=== PATIENT | male | born 1990 | race Caucasian/White ===

== ENCOUNTER 2017-06-29 13:03 | Outpatient (CLI) | payer OTHER | END 2017-06-29 13:04 | disposition home or self-care (01) | LOC: DI 13:03 | PROVIDERS: ATTEND Physician Assistant | DX: R00.2 Palpitations (principal) | CPT/HCPCS: 93306 ==

== ENCOUNTER 2018-10-09 10:41 | Outpatient (CLI) | payer OTHER ==
--- NOTE | 2018-10-09 12:16 | XRAY Report ---
Reason: UNSPECIFIED INJURY OF LEFT FOOT,INITIAL ENCOUNTER Procedure Date: 10/09/2018 Accession Number: [id number] / [id number] Procedure: XR - Foot 3 View LT CPT Code: FULL RESULT: EXAM: LEFT FOOT RADIOGRAPHY EXAM DATE: 10/09/2018 10:55 AM. CLINICAL HISTORY: Unspecified injury of left foot,initial encounter. COMPARISON: XR TOE OR TOES MIN 2 VIEWS 10/23/2008 10:19 AM. TECHNIQUE: 3 views. FINDINGS: Bones: Os trigonum is noted. No fractures or bone lesions. Joints: Normal. No subluxations. Soft Tissues: Normal. No soft tissue swelling. IMPRESSION: No fracture or dislocation is seen. RADIA
== END 2018-10-09 10:42 | disposition home or self-care (01) ==
LOC: DI 10:41
PROVIDERS: ATTEND Nurse Practitioner Family
DX: S99.922A Unspecified injury of left foot, initial encounter (principal)

== ENCOUNTER 2023-03-29 08:00 | Outpatient (CLI) | payer OTHER ==
[2023-03-29 20:30] LABS: BILIRUBIN,URINE NEGATIVE (NEGATIVE); GLUCOSE, URINE (UA) NEGATIVE (NEGATIVE); KETONES,URINE (UA) NEGATIVE (NEGATIVE); LEUKOCYTE ESTERASE, URINE NEGATIVE (NEGATIVE); NITRITE,URINE NEGATIVE (NEGATIVE); OCCULT BLOOD,URINE NEGATIVE (NEGATIVE); PROTEIN,URINE NEGATIVE (NEGATIVE); UROBILINOGEN,URINE 0.2 (NORMAL) E.U./dL (NORMAL)
[2023-03-29 20:32] LABS: CLARITY,URINE CLEAR (CLEAR)
[2023-03-29 21:06] LABS: BACTERIA,URINE None Seen /HPF (None Seen); RBC,URINE None Seen /HPF (0-5); SQUAMOUS EPITHELIAL CELL,UR NONE SEEN (<= Few); WBC,URINE 0-3 /HPF (0-3)
== END 2023-03-29 23:59 | disposition home or self-care (01) ==
LOC: LAB 08:00
PROVIDERS: ATTEND Emergency Medicine
DX: R10.32 Left lower quadrant pain (principal)
CPT/HCPCS: 81001; 87086

== ENCOUNTER 2023-03-30 16:49 | Emergency (ER) | payer OTHER ==
--- NOTE | 2023-03-30 17:01 | ED Physician Documentation ---
PD HPI ABD PAIN - Stated complaint Stated Complaint: ABD PX - Chief complaint Chief Complaint: Abd Pain - History obtained from History obtained from: Patient - Additional information Additional information: Otherwise healthy 33-year-old gentleman has had 2 days of slowly worsening left lower quadrant pain radiating to the penis. He gets a lot worse when he urinates. He has had on and off similar pain slightly higher for the last couple of months. No history of abdominal surgeries or colonoscopy. Seen in the urgent care yesterday and reportedly had normal UA and outpatient CT was ordered but advised to come here if he worsened which she has but declines pain medication on initial evaluation. PD PAST MEDICAL HISTORY - Past Surgical History Past Surgical History: No - Present Medications Home Medications: Ambulatory Orders Medication Instructions Recorded Confirmed Amox/Clav 875/125 [Augmentin] 1 each PO TID #21 tablet 03/30/23 - Allergies Allergies/Adverse Reactions: Allergies Allergy/AdvReac Type Severity Reaction Status Date / Time No Known Drug Allergies Allergy Verified 03/30/23 17:13 - Social History Does the pt smoke?: No Smoking Status: Never smoker Does the pt drink ETOH?: Yes Does the pt have substance abuse?: No PD ED PE NORMAL - Vitals Vital signs reviewed: Yes - General General: Alert and oriented X 3, No acute distress - Abdomen Abdomen: Normal bowel sounds, Soft, Other (Mild left lower quadrant tenderness without surgical signs) - Neuro Neuro: Alert and oriented X 3, Normal speech Results - Vitals Vitals: Vital Signs - 24 hr 03/30/23 03/30/23 03/30/23 16:56 17:06 20:05 Temperature 36.1 C L 36.3 C L Heart Rate 82 71 63 Respiratory 16 16 16 Rate Blood Pressure 133/89 H 141/96 H 127/88 H O2 Saturation 100 98 96 Oxygen O2 Source Room air - Labs Labs: Laboratory Tests 03/30/23 03/30/23 17:00 17:00 WBC 9.2 RBC 5.01 Hgb 14.8 Hct 45.1 MCV 90.0 MCH 29.5 MCHC 32.8 RDW 12.7 Plt Count 208 MPV 10.8 Neut # (Auto) 4.7 Lymph # (Auto) 3.6 H [place] # (Auto) 0.8 Eos # (Auto) 0.1 Baso # (Auto) 0.0 Absolute Nucleated RBC 0.00 Nucleated RBC % 0.0 Sodium 139 Potassium 3.6 Chloride 104 Carbon Dioxide 30 Anion Gap 5.0 L BUN 15 Creatinine 1.0 Estimated GFR (MDRD) 87 L Glucose 97 Calcium 9.7 Total Bilirubin 0.4 AST 14 ALT 18 Alkaline Phosphatase 81 Total Protein 7.2 Albumin 4.6 Globulin 2.6 Albumin/Globulin Ratio 1.8 Lipase 29 - Rads (name of study) CT a/p Relevant Findings:: Final report received, EMP independent interpretation of test PD Medical Decision Making - ED course Complexity details: reviewed results (CBC/CMP nl) ED course: On my "wet read" of his CT I thought he had a focal area of diverticulitis. He was discharged with instructions for that and a short course of antibiotics. On the final read of his CT, the diagnosis of epiploic appendagitis was made. I called the patient and clarified this and also discussed with him that he would not need specific dietary restrictions, he does not need to fill the antibiotics and he should probably still follow-up with his primary care physician but colonoscopy is not strictly necessary in follow-up. Departure - Departure Disposition: 01 Home, Self Care Clinical Impression: Epiploic appendagitis Condition: Good Record reviewed to determine appropriate education?: Yes Instructions: Diet Low Residue, ED Diverticulitis, ED Diet Clear Liquid Prescriptions: Amox/Clav 875/125 [Augmentin] 1 each PO TID #21 tablet Comments: Clear liquid diet for the next 24 hours, then a low residue diet for 48 hours, see attached instructions regarding both. Follow-up with your primary care ph ysician next week for reevaluation, return if worse. As discussed, it is standard to recommend colonoscopy after resolution of this flare, 6 to 8 weeks, request referral from your PCP. Forms: PCP List Discharge Date/Time: 03/30/23 20:05
[2023-03-30 17:16] LABS: BASOPHILS % (AUTO) 0.2 %; EOSINOPHILS # (AUTO) 0.1 10^3/uL (0.0-0.7); EOSINOPHILS % (AUTO) 0.9 %; HCT - HEMATOCRIT 45.1 % (42.0-52.0); HGB - HEMOGLOBIN 14.8 g/dL (14.0-18.0); LYMPHOCYTES # (AUTO) 3.6 10^3/uL (1.5-3.5); LYMPHOCYTES % (AUTO) 38.9 %; MEAN CORPUSCULAR HEMOGLOBIN 29.5 pg (27.0-31.0); MEAN CORPUSCULAR HGB CONC 32.8 g/dL (32.0-36.0); MEAN PLATELET VOLUME 10.8 fL (7.4-11.4); MONOCYTES # (AUTO) 0.8 10^3/uL (0.0-1.0); MONOCYTES % (AUTO) 8.7 %; NEUTROPHILS # (AUTO) 4.7 10^3/uL (1.5-6.6); PLT - PLATELET COUNT 208 10^3/uL (130-450); RED BLOOD COUNT 5.01 10^6/uL (4.70-6.10); RED CELL DISTRIBUTION WIDTH 12.7 % (12.0-15.0); WHITE BLOOD COUNT 9.2 x10^3/uL (4.8-10.8)
[2023-03-30 17:29] LABS: ALBUMIN 4.6 g/dL (3.2-5.5); ALBUMIN/GLOBULIN RATIO 1.8 (1.0-2.2); BILIRUBIN,TOTAL 0.4 mg/dL (0.2-1.0); CALCIUM 9.7 mg/dL (8.5-10.3); POTASSIUM 3.6 mmol/L (3.5-4.5); TOTAL PROTEIN 7.2 g/dL (6.4-8.9)
--- OUTSIDE RECORDS SUMMARY | 2023-03-30 17:37 | EXTERNAL MEDICAL SUMMARY RPT | Continuity of Care Document ---
Author Name Unknown Address [address] [place] [address] Phone Organization [facility] Address [address] [place] [address] Phone Care Team Providers Care Mailmaster Name Role Phone Unavailable Unavailable Unavailable Chase Pena, Shawn Unavailable Unavailable Medications date description facility 2023-03-29 00:00 No Known Medications [facility] Problems date description facility 2023-03-29 00:00 Abdominal pain, left lower quad rant [facility] 2023-03-29 00:00 Left lower quadrant pain [facility] Procedures date description facility 2023-03-29 00:00 Visit Code Hold [facility] 2023-03-29 00:00 POC URINALYSIS DIP [facility] Results/Labs test date facility value unit notes Social History date description facility 2023-03-29 00:00 Never smoker [facility] Vital Signs date measurement value units 2023-03-29 00:00 BMI 28.54 kg/m2 2023-03-29 00:00 BP_diastolic 78 mmHg 2023-03-29 00:00 BP_systolic 117 mmHg 2023-03-29 00:00 heart_rate 82 /min 2023-03-29 00:00 height_metric 179.07 cm 2023-03-29 00:00 height_standard 70.5 in 2023-03-29 00:00 respiration_rate 15 /min 2023-03-29 00:00 weight_metric 91.17 kg 2023-03-29 00:00 weight_standard 201 lb
[2023-03-30] MEDS ORDERED: iohexoL-300 100 ML VIAL IVP ONE (19:35)
[2023-03-30] MEDS ORDERED: AMOX/CLAV 875 MG/125 MG TABLET PO STA (19:57)
[2023-03-30 20:41] VITALS: BP 127/88; O2SAT 96
--- NOTE | 2023-03-30 20:55 | CT Report ---
PROCEDURE: ABDOMEN/PELVIS W INDICATIONS: IV only, left lower quadrant pain CONTRAST: 100ML OMN I 300 TECHNIQUE: After the administration of IV contrast, 5 mm thick sections acquired from the diaphragms to the symp hysis. 5 mm thick coronal and sagittal reformats were acquired. For radiation dose reduction, the f ollowing was used: automated exposure control, adjustment of mA and/or kV according to patient size. COMPARISON: None FINDINGS: Image quality: Good Lower chest: Mildly patulous distal esophagus, nonspecific appearance. Solid organs: Liver is unremarkable. Gallbladder is unremarkable. No pathologic dilation of the bilia ry tree or pancreatic duct. No splenomegaly. No adrenal nodules. No hydronephrosis. There are small s plenic granulomas. Vessels and lymph nodes: The main portal vein is patent. No abdominal aortic aneurysm. No pathologic lymph nodes by size criteria. Bowel and peritoneum: No evidence of small bowel obstruction. No drainable abscess. No evidence of di verticulitis. There are moderate inflammatory changes around the sigmoid colon, compatible with epipl oic appendagitis/fat necrosis. There is central fat attenuation. The appendix is normal. Body wall: Unremarkable. Pelvis: Bladder is underdistended. Prostate is not well evaluated on this study. Bones: No acute or suspicious osseous finding. IMPRESSION: Left lower quadrant epiploic appendagitis. This is a type of self-limited fat necrosis. No abscess. N o diverticulitis. No appendicitis. No small bowel obstruction. Other findings as above. Reviewed by: Dean Joya MD on 03/30/2023 8:54 PM PDT Approved by: Dean Joya MD on 03/30/2023 8:54 PM PDT Station ID: [id number]
== END 2023-03-30 20:05 | disposition home or self-care (01) ==
LOC: ED 16:49
DX: K63.89 Other specified diseases of intestine (principal)
CPT/HCPCS: 36415; 74177; 80053; 83690; 85025; 99284; A9270; Q9967

== ENCOUNTER 2023-10-03 08:00 | Outpatient (CLI) | payer OTHER ==
--- NOTE | 2023-10-03 14:59 | XRAY Report ---
PROCEDURE: Ribs w/PA Chest 3+V LT INDICATIONS: ATYPICAL CHEST PAIN WITH LEFT SIDED RIB PAIN TECHNIQUE: 2 views of the ribs were acquired, along with a single view chest. COMPARISON: None. FINDINGS: Surgical changes and devices: None. Bones and chest wall: No fractures or dislocations. No suspicious bony lesions. Overlying soft tis sues appear unremarkable. Lungs and pleura: No pleural effusions or pneumothorax. Lungs appear clear. Mediastinum: Mediastinal contours appear normal. Heart size is normal. IMPRESSION: No visualized acute fracture or dislocation. However, occult injury cannot be excluded. Recommend stephany rt interval imaging follow-up in 7-10 days as clinically indicated for additional evaluation. Reviewed by: Lydia Sousa MD on 10/03/2023 2:58 PM PST Approved by: Lydia Sousa MD on 10/03/2023 2:58 PM PST Station ID: [id number]
== END 2023-10-03 23:59 | disposition home or self-care (01) ==
LOC: DI.S 08:00
PROVIDERS: ATTEND Registered Nurse
DX: R07.89 Other chest pain (principal); R07.81 Pleurodynia

== ENCOUNTER 2023-10-09 15:24 | Emergency (ER) | payer OTHER ==
[2023-10-09 16:49] LABS: BASOPHILS # (AUTO) 0.1 10^3/uL (0.0-0.1); BASOPHILS % (AUTO) 0.5 %; EOSINOPHILS # (AUTO) 0.2 10^3/uL (0.0-0.7); EOSINOPHILS % (AUTO) 1.5 %; HCT - HEMATOCRIT 46.1 % (42.0-52.0); LYMPHOCYTES # (AUTO) 3.4 10^3/uL (1.5-3.5); LYMPHOCYTES % (AUTO) 34.5 %; MEAN CORPUSCULAR HEMOGLOBIN 29.2 pg (27.0-31.0); MEAN CORPUSCULAR HGB CONC 32.5 g/dL (32.0-36.0); MEAN CORPUSCULAR VOLUME 89.7 fL (80.0-94.0); MEAN PLATELET VOLUME 9.7 fL (7.4-11.4); MONOCYTES # (AUTO) 0.9 10^3/uL (0.0-1.0); MONOCYTES % (AUTO) 9.3 %; NEUTROPHILS # (AUTO) 5.3 10^3/uL (1.5-6.6); PLT - PLATELET COUNT 271 10^3/uL (130-450); RED BLOOD COUNT 5.14 10^6/uL (4.70-6.10); RED CELL DISTRIBUTION WIDTH 12.4 % (12.0-15.0); WHITE BLOOD COUNT 9.8 x10^3/uL (4.8-10.8)
--- NOTE | 2023-10-09 16:49 | XRAY Report ---
PROCEDURE: Chest 1V INDICATIONS: Chest pain TECHNIQUE: One view of the chest was acquired. COMPARISON: None. FINDINGS: Surgical changes and devices: None. Lungs and pleura: No pleural effusions or pneumothorax. Lungs are clear. Mediastinum: Mediastinal contours appear normal. Heart size is normal. Bones and chest wall: No suspicious bony lesions. Overlying soft tissues appear unremarkable. IMPRESSION: No acute cardiopulmonary process. Reviewed by: Peg Waterman MD, PhD on 10/09/2023 4:48 PM PST Approved by: Peg Waterman MD, PhD on 10/09/2023 4:48 PM PST Station ID: [id number]
[2023-10-09 17:00] LABS: ALBUMIN 4.5 g/dL (3.2-5.5); ALBUMIN/GLOBULIN RATIO 1.7 (1.0-2.2); ALKALINE PHOSPHATASE 88 IU/L (42-121); ALT ALANINE AMINOTRANSFERASE 19 IU/L (10-60); AST ASPARTATE AMINOTRANSFERASE 14 IU/L (10-42); BILIRUBIN,TOTAL 0.3 mg/dL (0.2-1.0); BUN - BLOOD UREA NITROGEN 15 mg/dL (6-20); CALCIUM 9.8 mg/dL (8.5-10.3); CARBON DIOXIDE - CO2 32 mmol/L (21-32); CHLORIDE 102 mmol/L (101-111); CREATININE 0.9 mg/dL (0.6-1.3); GFR - MDRD 98 (>89); GLUCOSE 91 mg/dL (74-104); LIPASE 34 U/L (11-82); SODIUM 138 mmol/L (135-145); TOTAL PROTEIN 7.2 g/dL (6.4-8.9)
[2023-10-09 17:07] LABS: TROPONIN I HIGH SENSITIVITY < 2.3 ng/L (2.3-19.7)
--- NOTE | 2023-10-09 18:16 | ED Physician Documentation ---
PD HPI CHEST PAIN - Stated complaint Stated Complaint: CHEST PX,SOA,LIGHTHEADED,HIGH BP - Chief complaint Chief Complaint: Cardiac - Additional information Additional information: 34-year-old male presents emergency department for chest pain shortness of breath lightheadedness. Patient says that he has been struggling with a cough multiple different upper respiratory infection symptoms now for about a month he has got children at home as well as his and that he and his describe as it seems like they are all rotating upper respiratory infection symptoms. He is recently started on amoxicillin antibiotics for sinus infection but since Sunday he has been having left rib pain that is been radiating to his chest. He said he is having a hard getting his pain I started about a month ago from a rib contusion from coughing but he feels like it is now spreading to the anterior portion of his chest. Patient and his also report that he suffers from debilitating anxiety. PD PAST MEDICAL HISTORY - Past Medical History Past Medical History: Yes Cardiovascular: None Respiratory: None Neuro: None Endocrine/Autoimmune: None GI: None : None HEENT: None Psych: None Musculoskeletal: None Derm: None - Past Surgical History Past Surgical History: No - Present Medications Home Medications: Ambulatory Orders Medication Instructions Recorded Confirmed Amox/Clav 875/125 [Augmentin] 1 each PO BID 10/09/23 10/09/23 methylPREDNISolone [Medrol Dose 1 each PO .PACKAGEINSTRUCTIONS 10/09/23 10/09/23 Pack] - Allergies Allergies/Adverse Reactions: Allergies Allergy/AdvReac Type Severity Reaction Status Date / Time No Known Drug Allergies Allergy Verified 10/09/23 16:11 - Social History Does the pt smoke?: No Smoking Status: Never smoker Does the pt drink ETOH?: Yes ETOH Use: Beer Does the pt have substance abuse?: No - Immunizations Immunizations are current?: No Immunizations: Other immun not current - POLST Patient has POLST: No PD ED PE NORMAL - Vitals Vital signs reviewed: Yes - General General: Alert and oriented X 3, No acute distress, Well developed/nourished - HEENT HEENT: Atraumatic, PERRL, EOMI, Ears normal, Moist mucous membranes, Pharynx benign - Cardiac Cardiac: RRR, No murmur, No gallop, Strong equal pulses - Respiratory Respiratory: No respiratory distress, Clear bilaterally - Abdomen Abdomen: Normal bowel sounds, Soft, Non tender, No organomegaly - Back Back: No CVA TTP - Derm Derm: Normal color, Warm and dry, No rash - Extremities Extremities: No deformity, No edema - Psych Psych: Normal mood Results - Vitals Vitals: Vital Signs - 24 hr 10/09/23 10/09/23 16:12 18:32 Temperature 36.1 C L 36.9 C Heart Rate 70 82 Respiratory 18 18 Rate Blood Pressure 136/94 H 138/99 H O2 Saturation 99 96 Oxygen O2 Source Room air - EKG (time done) 1614 EKG releavant findings:: EKG personally interpreted by author of this note. Relevant findings are: Rate: Rate (enter#) (63) Rhythm: NSR Home: Normal Intervals: Normal AK QRS: Normal Ischemia: Normal ST segments Computer interpretation: Agree with computer - Labs Labs: Laboratory Tests 10/09/23 10/09/23 10/09/23 16:41 16:41 18:13 WBC 9.8 RBC 5.14 Hgb 15.0 Hct 46.1 MCV 89.7 MCH 29.2 MCHC 32.5 RDW 12.4 Plt Count 271 MPV 9.7 Neut # (Auto) 5.3 Lymph # (Auto) 3.4 [place] # (Auto) 0.9 Eos # (Auto) 0.2 Baso # (Auto) 0.1 Absolute Nucleated RBC 0.00 Nucleated RBC % 0.0 Sodium 138 Potassium 4.0 Chloride 102 Carbon Dioxide 32 Anion Gap 4.0 L BUN 15 Creatinine 0.9 Estimated GFR (MDRD) 98 Glucose 91 Calcium 9.8 Total Bilirubin 0.3 AST 14 ALT 19 Alkaline Phosphatase 88 Troponin I High Sens < 2.3 L Total Protein 7.2 Albumin 4.5 Globulin 2.7 Albumin/Globulin Ratio 1.7 Lipase 34 Nasal Adenovirus (PCR) NOT DETECTED Nasal B. parapertussis DNA (PCR) NOT DETECTED Nasal Coronavir 229E PCR NOT DETECTED Nasal Coronavir HKU1 PCR NOT DETECTED Nasal Coronavir NL63 PCR DETECTED A Nasal Coronavir OC43 PCR NOT DETECTED Nasal Enterovir/Rhinovir PCR NOT DETECTED Nasal Influenza B PCR NOT DETECTED Nasal Influenza A PCR NOT DETECTED Nasal Parainfluen 1 PCR NOT DETECTED Nasal Parainfluen 2 PCR NOT DETECTED Nasal Parainfluen 3 PCR NOT DETECTED Nasal Parainfluen 4 PCR NOT DETECTED Nasal RSV (PCR) NOT DETECTED Nasal B.pertussis DNA PCR NOT DETECTED Nasal C.pneumoniae (PCR) NOT DETECTED Kevin Human Metapneumo PCR NOT DETECTED Nasal M.pneumoniae (PCR) NOT DETECTED Nasal SARS-CoV-2 (PCR) NOT DETECTED - Rads (name of study) Chest x-ray Relevant Findings:: Final report received, EMP independent interpretation of test, Other (No cardiopulmonary abnormalities) PD Medical Decision Making - ED course ED course: Exam without evidence of volume overload so doubt heart failure. EKG without signs of active ischemia. Given the timing of pain to ER presentation, single troponin was Negative so doubt NSTEMI. Presentation not consistent with acute PE (PERC negative),pneumothorax (not visualized on chest xr), thoracic aortic dissection, pericarditis, tamponade, pneumonia (no infectious symptoms, clear chest xr), myocarditis (no recent illness, neg trop). HEART score:0 so plan to discharge patient home with PCP follow up. Departure - Departure Disposition: 01 Home, Self Care Clinical Impression: Chest pain Qualifiers: Chest pain type: other chest pain Qualified Code(s): R07.89 - Other chest pain Instructions: ED Chest Pain Atypical Unkn Cause Comments: Thank you for trusting us with your care. We have completed an EKG, labs, chest x-ray and we are not seeing any acute abnormalities or findings that would indicate your chest pain is due to heart attack. Please help with your primary care provider about possibly discussing a beta-ranulfo for your PVCs or an antianxiety medication to help with regulating your anxiety that you are experiencing. Please do not hesitate to come back to the emergency department for further evaluation or reevaluation of your chest pain if it gets any worse. Forms: PCP List Discharge Date/Time: 10/09/23 18:40
[2023-10-09 18:42] VITALS: BP 138/99; O2SAT 96
[2023-10-09 19:21] LABS: B. PARAPERTUSSIS- RESP PCR PAN NOT DETECTED; B. PERTUSSIS- RESP PCR PANEL NOT DETECTED; C. PNEUMONIAE- RESP PCR PANEL NOT DETECTED; CORONAVIRUS 229E-RESP PCR NOT DETECTED; CORONAVIRUS HKU1-RESP PCR NOT DETECTED; CORONAVIRUS NL63-RESP PCR DETECTED; CORONAVIRUS OC43-RESP PCR NOT DETECTED; HUMAN METAPNEUMOVIRUS NOT DETECTED; INFLUENZA A- RESP PCR PANEL NOT DETECTED; INFLUENZA B - RESP PCR PANEL NOT DETECTED; M. PNEUMONIAE- RESP PCR PANEL NOT DETECTED; PARAINFLUENZA VIRUS 1 NOT DETECTED; PARAINFLUENZA VIRUS 2 NOT DETECTED; PARAINFLUENZA VIRUS 3 NOT DETECTED; PARAINFLUENZA VIRUS 4 NOT DETECTED; RHINOVIRUS/ENTEROVIRUS NOT DETECTED; RSV- RESP PCR PANEL NOT DETECTED; SARS-CoV-2 -RESP PCR PANEL NOT DETECTED
== END 2023-10-09 18:40 | disposition home or self-care (01) ==
LOC: ED 15:24
DX: R07.89 Other chest pain (principal)
CPT/HCPCS: 36415; 80053; 83690; 84484; 85025; 87633; 93005; 99284